=== PATIENT | female | born 1965 | race Caucasian/White ===

== ENCOUNTER → 2020-06-30 09:06 | Outpatient (CLI) | payer OTHER, SELFPAY ==
--- NOTE | ~2020-06-30 | XR_ITS ---
XR hip LT 2V w AP pelvis DATE: 06/30/2020 09:26 INDICATION: Left hip pain TECHNIQUE: AP pelvis. AP, lateral and crosstable lateral views of left hip COMPARISON: None FINDINGS: There is moderate osteoarthritic change including joint space narrowing and spurring at the left hip joint. No pelvic fracture or bone destruction. The pubic symphysis and sacroiliac joints are intact. Degenerative change at the apophyseal joints and degenerative disease in the lower lumbar and lumbosa cral area. IMPRESSION: Left hip osteoarthritis Reviewed, dictated and finalized at location A. IMPRESSION: Left hip osteoarthritis
== END ==
PROVIDERS: PCP Family Medicine; Visit Provider Physician Assistant Medical
DX: M16.12 Unilateral primary osteoarthritis, left hip (principal); M47.817 Spondylosis without myelopathy or radiculopathy, lumbosacral region
CPT/HCPCS: 73502

== ENCOUNTER 2020-11-17 07:12 | Outpatient (NON) | payer OTHER, SELFPAY | END 2020-11-17 07:13 | PROVIDERS: PCP Family Medicine; Visit Provider Nurse Practitioner | DX: L02.91 Cutaneous abscess, unspecified (principal) | CPT/HCPCS: 87070; 87075; 87205 ==

== ENCOUNTER → 2021-03-16 10:02 | Outpatient (CLI) | payer OTHER, SELFPAY ==
--- NOTE | ~2021-03-16 | XR_ITS ---
XR hip LT 2V w AP pelvis DATE: 03/16/2021 10:19 INDICATION: Left hip pain and groin pain since June 2020. No injury. TECHNIQUE: AP pelvis. AP and lateral views of left hip COMPARISON: 06/30/2020 left hip FINDINGS: Again noted is moderate left hip joint space narrowing and spurring consistent with osteoar thritis. No fracture, dislocation, avascular necrosis or bone destruction of the left hip is evident. The pubic symphysis and sacroiliac joints are intact. No pelvic fracture or bone destruction is detec julienne. IMPRESSION: Moderate left hip osteoarthritis Reviewed, dictated and finalized at location B.
== END ==
PROVIDERS: PCP Nurse Practitioner Family; Visit Provider Nurse Practitioner Family
DX: M16.12 Unilateral primary osteoarthritis, left hip (principal)
CPT/HCPCS: 73502

== ENCOUNTER → 2021-04-26 09:10 | Outpatient (REF) | payer OTHER, SELFPAY | LOC: ANHLAB 09:10 | PROVIDERS: PCP Nurse Practitioner Family; Visit Provider Nurse Practitioner | DX: L72.0 Epidermal cyst (principal) | CPT/HCPCS: 88304 ==

== ENCOUNTER 2021-05-12 12:33 | Outpatient (CLI) | payer OTHER, SELFPAY ==
--- NOTE | ~2021-05-12 | XR_ITS ---
EXAMINATION: XR lg joint inject/asp w image DATE: 05/12/2021 13:24 INDICATION: Left hip arthritis. TECHNIQUE: A time-out was performed to verify the patient's name, date of , and procedure to b e performed. The procedure including the risks, benefits, and alternatives was discussed with the pat ient. Risks discussed included bleeding and infection. The patient understood the risks and agreed to proceed. The skin overlying the left hip joint was prepped and draped in usual sterile fashion. An esthetic was administered with 1% lidocaine subcutaneously. A 22 G needle was advanced under fluoros copic guidance into the joint. Injection of 1 mL of Omnipaque 240 confirmed intra-articular position of the needle. Subsequently, injectate consisting of 2 mL 0.5% bupivacaine and 1 mL 80 mg/mL Depo-M edrol was instilled. The needle was removed and the entry site was cleaned and dressed. There were no immediate complications. Fluoroscopy exposure time was 0.1 minutes. The total number of images was 1. FINDINGS: Real-time fluoroscopy demonstrates the needle in the left hip joint. Patient's pain prior t o procedure:6/10. Patient's pain following the procedure: 0/10. IMPRESSION: 1. Fluoroscopy guided left hip joint injection of local anesthetic and steroid with decrease in the p atient's presenting pain. Reviewed, dictated and finalized at location A. IMPRESSION: 1. Fluoroscopy guided left hip joint injection of local anesthetic and steroid with decrease in the patient's presenting pain.
== END 2021-05-12 12:34 | disposition home or self-care (01) ==
LOC: ANHIMG 12:41
PROVIDERS: PCP Nurse Practitioner Family; Visit Provider Orthopaedic Surgery
DX: M25.552 Pain in left hip (principal); M16.12 Unilateral primary osteoarthritis, left hip
CPT/HCPCS: 20610; 77002; J1040; Q9966

== ENCOUNTER 2021-08-16 12:12 | Outpatient (CLI) | payer OTHER, SELFPAY ==
--- NOTE | ~2021-08-16 | XR_ITS ---
EXAMINATION: XR lg joint inject/asp w image DATE: 08/16/2021 13:03 INDICATION: Left hip osteoarthritis TECHNIQUE: A time-out was performed to verify the patient's name, date of , and procedure to b e performed. The procedure including the risks, benefits, and alternatives was discussed with the pat ient. Risks discussed included bleeding and infection. The patient understood the risks and agreed to proceed. The skin overlying the left hip joint was prepped and draped in usual sterile fashion. An esthetic was administered with 1% lidocaine subcutaneously. A 22 G needle was advanced under fluoros copic guidance into the joint. Injection of 1 mL of Omnipaque 240 confirmed intra-articular position of the needle. Subsequently, injectate consisting of 3 mL of a 2:1 mixture of 0.5% bupivacaine: 80 mg/mL Depo-Medrol for a total dosage of 80 mg Depo-Medrol was instilled. Washout of contrast was seen confirming intra-articular administration. The needle was removed and the entry site was cleaned and dressed. There were no immediate complications. Fluoroscopy exposure time was 0.1 minutes. The tota l number of images was 2. Total DAP was 0.477 mGycm^2. FINDINGS: Real-time fluoroscopy demonstrates the needle in the left hip joint. Patient's pain prior t o procedure:6/10. Patient's pain following the procedure: 0/10. IMPRESSION: 1. Left hip joint injection of local anesthetic and steroid with decrease in the patient's presenting pain. Reviewed, dictated and finalized at location A. [employer] IMPRESSION: 1. Left hip joint injection of local anesthetic and steroid with decrease in th e patient's presenting pain.
== END 2021-08-16 12:13 | disposition home or self-care (01) ==
PROVIDERS: PCP Nurse Practitioner Family; Visit Provider Nurse Practitioner Family
DX: M16.12 Unilateral primary osteoarthritis, left hip (principal)
CPT/HCPCS: 20610; 77002; J2785; Q9966

== ENCOUNTER → 2023-12-19 11:43 | Outpatient (CLI) | payer OTHER, SELFPAY ==
--- NOTE | ~2023-12-19 | XR_ITS ---
EXAM: XR hip RT 2V w AP pelvis DATE: 12/19/2023 12:19 HISTORY: RT hip pain 6x months. no trauma or injury . COMPARISON: 03/16/2021, report only. FINDINGS: Partially visualized left hip arthroplasty hardware. Normal mineralization. No fracture or dislocation. No lytic or blastic lesion. Amorphous calcification over the left right greater tuberosi ty, likely gluteus medius tendon. Mild superior joint space narrowing of the right hip, with mild ost eophytosis. Lumbar degenerative disc disease. Scattered pelvic enthesopathy. No erosion or periosteal change. Soft tissues within normal limits. IMPRESSION: Mild right hip osteoarthritic arthritis. Right hip calcific tendinitis. Reviewed, dictated and finalized at location K. IMPRESSION: Mild right hip osteoarthritic arthritis. Right hip calcific tendini tis.
== END ==
PROVIDERS: PCP Physician Assistant Medical; Visit Provider Physician Assistant Medical
DX: M16.11 Unilateral primary osteoarthritis, right hip (principal); M65.851 Other synovitis and tenosynovitis, right thigh
CPT/HCPCS: 73502